=== PATIENT | female | born 1995 | race Caucasian/White ===

== ENCOUNTER 2016-09-19 23:15 | Outpatient (CLI) | payer MEDICAID ==
[~2016-09-19] VITALS: Ht 152.4 cm; Wt 82.7 kg
[2016-09-19 23:20] VITALS: BP 117/70; PULSE 64; TEMP 98.1
[2016-09-19] MEDS ORDERED: NATURAL IRON65 MG PO (23:28)
[2016-09-19] MEDS ORDERED: PRENATAL1 TA7 PO (23:28)
[2016-09-19] MEDS ORDERED: ZOLOFT 50MG50 MG PO (23:29)
[2016-09-20 01:00] VITALS: BP 122/72; PULSE 71
[2016-09-20 01:00] LABS: PH 7 (5-8); SQUAMOUS EPITHELIAL 0-2 /hpf; URINE APPEARANCE Clear; URINE BACTERIA None Seen /hpf; URINE BILIRUBIN Negative (NEGATIVE); URINE BLOOD Negative (NEGATIVE); URINE COLOR Colorless; URINE GLUCOSE Negative (NEGATIVE); URINE KETONE Negative (NEGATIVE); URINE RBC None Seen /hpf; URINE UROBILINOGEN Negative (NEGATIVE); URINE WBC 0-2 /hpf
[2016-09-20 01:30] VITALS: BP 121/68; PULSE 93
== END 2016-09-20 02:00 | disposition home or self-care (01) ==
LOC: LDRO 23:15
PROVIDERS: Student in an Organized Health Care Education/Training Program
DX: O26.893 Other specified pregnancy related conditions, third trimester (principal); R10.2 Pelvic and perineal pain; Z3A.33 33 weeks gestation of pregnancy
CPT/HCPCS: J3105; J7120

== ENCOUNTER 2016-09-29 18:32 | Outpatient (CLI) | payer MEDICAID ==
[~2016-09-29] VITALS: Ht 152.4 cm; Wt 85.0 kg
[~2016-09-29 18:32] MED LIST: NATURAL IRON65 MG PO; PRENATAL1 TA7 PO; ZOLOFT 50MG50 MG PO
[2016-09-29 18:47] VITALS: BP 117/67; PULSE 73; TEMP 98.3
== END 2016-09-29 20:00 | disposition home or self-care (01) ==
LOC: LDRO 18:32
DX: O26.893 Other specified pregnancy related conditions, third trimester (principal); R10.9 Unspecified abdominal pain; Z3A.34 34 weeks gestation of pregnancy

== ENCOUNTER 2016-10-01 22:48 | Outpatient (CLI) | payer MEDICAID ==
[~2016-10-01] VITALS: Ht 152.4 cm; Wt 85.0 kg
[2016-10-01 23:30] VITALS: BP 119/79; PULSE 82; TEMP 98.3
[2016-10-02] VITALS: BP 126/71; PULSE 104
== END 2016-10-02 01:00 | disposition home or self-care (01) ==
LOC: LDRO 22:48
DX: O62.9 Abnormality of forces of labor, unspecified (principal); Z3A.34 34 weeks gestation of pregnancy
CPT/HCPCS: J3105; J7120

== ENCOUNTER 2016-12-23 11:58 | Emergency (ER) | payer MEDICAID ==
[~2016-12-23] VITALS: Ht 154.9 cm; Wt 74.5 kg
[2016-12-23 11:59] VITALS: TEMP 98
[2016-12-23] MEDS ORDERED: KYLEENA1 EACH IY (12:02)
[2016-12-23 12:55] LABS: COLLECTION METHOD CATHETER
[2016-12-23 12:59] LABS: BASO % 0.2 % (0.0-2.0); EOS # 0.1 (0.0-0.7); EOS % 0.9 % (0-4.0); GRAN # 11.1 (1.4-6.5); HEMATOCRIT 41.2 % (37.0-47.0); HEMOGLOBIN 13.6 g/dl (12.5-16.0); LYMPH # 1.9 (1.2-3.4); LYMPH % 13.5 % (20.0-51.0); MEAN CELL VOLUME 91 fl (80.0-100.0); MEAN CORPUSCULAR HEMOGLOBIN 30 pg (27.0-31.0); MEAN CORPUSCULAR HGB CONC 33 g/dl (33.0-37.0); MEAN PLATELET VOLUME 9.7 fl (7.4-10.4); MONO # 0.8 (0.1-0.6); PLATELET COUNT 335 K/mm3 (130-400); RED BLOOD COUNT 4.54 M/mm3 (4.10-5.30)
[2016-12-23 13:04] LABS: MUCOUS Present /lpf; PH 7 (5-8); SQUAMOUS EPITHELIAL 20-50 /hpf; URINE APPEARANCE Cloudy; URINE BACTERIA Rare /hpf; URINE BILIRUBIN Negative (NEGATIVE); URINE BLOOD 1+ (NEGATIVE); URINE COLOR Yellow; URINE GLUCOSE Negative (NEGATIVE); URINE KETONE Negative (NEGATIVE); URINE LEUKOCYTE ESTERASE 2+ (NEGATIVE); URINE PROTEIN(semi-quant) 1+ (NEGATIVE)
[2016-12-23 13:05] LABS: URINE WBC 20-50 /hpf
[2016-12-23 13:19] LABS: ALBUMIN 4.9 gm/dL (3.5-5.0); BILIRUBIN,TOTAL 0.7 mg/dL (0.0-1.0); CALCIUM 9.7 mg/dL (8.4-10.2); CREATININE, serum 0.75 mg/dL (0.52-1.25); TOTAL PROTEIN 7.9 gm/dL (6.4-8.2)
[2016-12-23 15:17] LABS: COLLECTION METHOD CATHETER
[2016-12-23 15:23] LABS: MUCOUS Present /lpf; PH 7 (5-8); URINE APPEARANCE Clear; URINE BACTERIA None Seen /hpf; URINE BILIRUBIN Negative (NEGATIVE); URINE BLOOD Negative (NEGATIVE); URINE COLOR Straw; URINE GLUCOSE Negative (NEGATIVE); URINE KETONE Trace (NEGATIVE); URINE LEUKOCYTE ESTERASE Negative (NEGATIVE); URINE PROTEIN(semi-quant) Negative (NEGATIVE); URINE RBC 0-2 /hpf; URINE UROBILINOGEN Negative (NEGATIVE); URINE WBC 0-2 /hpf
[2016-12-23] MEDS ORDERED: NORCO 325 MG-51 TAB PO (15:47)
[2016-12-23] MEDS ORDERED: ZOFRAN 4MG T4 MG/TAB PO (15:47)
[2016-12-23 15:59] VITALS: BP 112/71; PULSE 59
== END 2016-12-23 16:01 | disposition home or self-care (01) ==
LOC: COL.ER 11:58
PROVIDERS: Physician Assistant
DX: N83.209 Unspecified ovarian cyst, unspecified side (principal); F32.9 Major depressive disorder, single episode, unspecified
CPT/HCPCS: J2405; J3010; J7030; Q9967

== ENCOUNTER 2017-03-15 18:34 | Emergency (ER) | payer MEDICAID ==
[~2017-03-15] VITALS: Ht 152.4 cm; Wt 76.4 kg
[~2017-03-15 18:34] MED LIST changes: +KYLEENA1 EACH IY; +NORCO 325 MG-51 TAB PO; +ZOFRAN 4MG T4 MG/TAB PO
[2017-03-15 18:41] VITALS: BP 133/69; TEMP 98.2
[2017-03-15] MEDS ORDERED: BIRTH CONTROL (18:45)
[2017-03-15 20:28] LABS: COLLECTION METHOD CATHETER
[2017-03-15 20:35] LABS: MUCOUS Present /lpf; PH 6 (5-8); URINE APPEARANCE Cloudy; URINE BACTERIA Rare /hpf; URINE BILIRUBIN Negative (NEGATIVE); URINE BLOOD Negative (NEGATIVE); URINE COLOR Yellow; URINE GLUCOSE Negative (NEGATIVE); URINE KETONE Negative (NEGATIVE); URINE LEUKOCYTE ESTERASE 2+ (NEGATIVE); URINE NITRATE Negative (NEGATIVE); URINE PROTEIN(semi-quant) Negative (NEGATIVE)
[2017-03-15] MEDS ORDERED: FLEXERIL 1010 MG/TAB PO (21:54)
[2017-03-15] MEDS ORDERED: NORCO 325 MG-51 TAB PO (21:54)
[2017-03-15] MEDS ORDERED: CEFTIN500 MG PO (21:54)
[2017-03-15 22:56] VITALS: PULSE 68
== END 2017-03-15 22:56 | disposition home or self-care (01) ==
LOC: COL.ER 18:34
PROVIDERS: Nurse Practitioner
DX: N39.0 Urinary tract infection, site not specified (principal); F32.9 Major depressive disorder, single episode, unspecified
CPT/HCPCS: J1885; J2360

== ENCOUNTER 2017-08-29 23:24 | Emergency (ER) | payer MEDICAID ==
[~2017-08-29] VITALS: Ht 152.4 cm; Wt 78.6 kg
[~2017-08-29 23:24] MED LIST changes: +BIRTH CONTROL; +CEFTIN500 MG PO; +FLEXERIL 1010 MG/TAB PO
[2017-08-29 23:27] VITALS: TEMP 98
[2017-08-29 23:50] LABS: BASO % 0.2 % (0.0-2.0); EOS % 0.3 % (0-4.0); GRAN # 7.9 (1.4-6.5); GRAN % 65.8 % (42.2-75.2); HEMATOCRIT 41.7 % (37.0-47.0); LYMPH % 24.9 % (20.0-51.0); MEAN CELL VOLUME 90 fl (80.0-100.0); MEAN CORPUSCULAR HEMOGLOBIN 30 pg (27.0-31.0); MEAN CORPUSCULAR HGB CONC 34 g/dl (33.0-37.0); MEAN PLATELET VOLUME 9.6 fl (7.4-10.4); MONO % 8.4 % (1.7-9.3); PLATELET COUNT 278 K/mm3 (130-400); RED BLOOD COUNT 4.63 M/mm3 (4.10-5.30); REDCELL DISTRIBUTION WIDTH-CV 13.1 % (11.5-14.5)
[2017-08-30 00:03] LABS: ALANINE AMINOTRANSFERASE 35 U/L (9-52); ALBUMIN 4.6 gm/dL (3.5-5.0); ALKALINE PHOSPHATASE 100 U/L (50-136); ANION GAP 12 mmol/L (7-16); AST,SGOT 21 U/L (15-37); BILIRUBIN,TOTAL 0.9 mg/dL (0.0-1.0); BLOOD UREA NITROGEN 9 mg/dL (7-17); C-REACTIVE PROTEIN 6.1 mg/dL (0.0-0.9); CALCIUM 9.6 mg/dL (8.4-10.2); CARBON DIOXIDE 27 mmol/L (22-30); CHLORIDE 98 mmol/L (98-107); CREATININE, serum 0.81 mg/dL (0.52-1.25); GLUCOSE 99 mg/dL (74-106); LIPASE 14 U/L (23-300); POTASSIUM 3.9 mmol/L (3.4-5.0); SODIUM 138 mmol/L (137-145); TOTAL PROTEIN 8.3 gm/dL (6.4-8.2)
[2017-08-30 00:13] LABS: TROPONIN-I < 0.012 ng/mL (0.000-0.034)
[2017-08-30 00:52] LABS: COLLECTION METHOD CLEAN CATCH
[2017-08-30 00:59] LABS: MUCOUS Present /lpf; PH 6 (5-8); URINE APPEARANCE Clear; URINE BACTERIA None Seen /hpf; URINE BILIRUBIN Negative (NEGATIVE); URINE BLOOD Negative (NEGATIVE); URINE COLOR Yellow; URINE GLUCOSE Negative (NEGATIVE); URINE KETONE Negative (NEGATIVE); URINE LEUKOCYTE ESTERASE Negative (NEGATIVE); URINE NITRATE Negative (NEGATIVE); URINE PROTEIN(semi-quant) Negative (NEGATIVE); URINE RBC 0-2 /hpf; URINE UROBILINOGEN Negative (NEGATIVE)
[2017-08-30] MEDS ORDERED: NORCO 325 MG-51 TAB PO (02:37)
[2017-08-30] MEDS ORDERED: LEVAQUIN 750MG750 M1 PO (02:37)
[2017-08-30 02:41] VITALS: BP 101/71; PULSE 65
== END 2017-08-30 02:46 | disposition home or self-care (01) ==
LOC: COL.ER 23:24
PROVIDERS: Emergency Medicine
DX: J90 Pleural effusion, not elsewhere classified (principal); Z90.89 Acquired absence of other organs
CPT/HCPCS: J1170; J1885; J7030; Q9967

== ENCOUNTER 2018-07-31 14:32 | Emergency (ER) | payer MEDICAID ==
[~2018-07-31] VITALS: Ht 152.4 cm; Wt 60.9 kg
[~2018-07-31 14:32] MED LIST changes: +LEVAQUIN 750MG750 M1 PO
[2018-07-31 14:38] VITALS: TEMP 98
[2018-07-31 14:51] LABS: COLLECTION METHOD CLEAN CATCH
[2018-07-31 15:13] LABS: MUCOUS Present /lpf; PH 6 (5-8); URINE APPEARANCE Clear; URINE BACTERIA None Seen /hpf; URINE BILIRUBIN Negative (NEGATIVE); URINE BLOOD Negative (NEGATIVE); URINE COLOR Yellow; URINE GLUCOSE Negative (NEGATIVE); URINE KETONE Negative (NEGATIVE); URINE LEUKOCYTE ESTERASE Negative (NEGATIVE); URINE NITRATE Negative (NEGATIVE); URINE PROTEIN(semi-quant) Negative (NEGATIVE); URINE RBC 0-2 /hpf; URINE UROBILINOGEN Negative (NEGATIVE)
[2018-07-31 18:07] LABS: BASO % 0.3 % (0.0-2.0); EOS # 0.1 (0.0-0.7); EOS % 1.6 % (0-4.0); GRAN # 4.2 (1.4-6.5); GRAN % 46.9 % (42.2-75.2); HEMOGLOBIN 11.2 g/dl (12.5-16.0); LYMPH % 44.1 % (20.0-51.0); MEAN CELL VOLUME 92 fl (80.0-100.0); MEAN CORPUSCULAR HEMOGLOBIN 31 pg (27.0-31.0); MEAN CORPUSCULAR HGB CONC 34 g/dl (33.0-37.0); MEAN PLATELET VOLUME 9.8 fl (7.4-10.4); MONO # 0.6 (0.1-0.6); MONO % 6.8 % (1.7-9.3); PLATELET COUNT 267 K/mm3 (130-400); RED BLOOD COUNT 3.62 M/mm3 (4.10-5.30); REDCELL DISTRIBUTION WIDTH-CV 12.9 % (11.5-14.5)
[2018-07-31 18:15] LABS: HEMATOCRIT 33.3 % (37.0-47.0)
[2018-07-31 18:19] LABS: ALANINE AMINOTRANSFERASE 27 U/L (9-52); ALBUMIN 3.9 gm/dL (3.5-5.0); ALKALINE PHOSPHATASE 50 U/L (50-136); ANION GAP 8 mmol/L (7-16); AST,SGOT 24 U/L (15-37); BILIRUBIN,TOTAL 0.2 mg/dL (0.0-1.0); BLOOD UREA NITROGEN 8 mg/dL (7-17); CALCIUM 9.1 mg/dL (8.4-10.2); CARBON DIOXIDE 26 mmol/L (22-30); CHLORIDE 104 mmol/L (98-107); CREATININE, serum 0.68 (0.52-1.25); GLUCOSE 90 mg/dL (74-106); LIPASE 49 U/L (23-300); POTASSIUM 3.8 mmol/L (3.4-5.0); SODIUM 139 mmol/L (137-145); TOTAL PROTEIN 6.6 gm/dL (6.4-8.2)
[2018-07-31 18:27] LABS: C-REACTIVE PROTEIN < 0.5 mg/dL (0.0-0.9)
[2018-07-31] MEDS ORDERED: PHENERGAN 25 TA25 MG PO (19:01)
[2018-07-31 19:05] LABS: HCG,QUANTITATIVE 25727 mIU/mL (0-5)
[2018-07-31 19:15] VITALS: BP 112/74; PULSE 74
== END 2018-07-31 19:15 | disposition home or self-care (01) ==
LOC: COL.ER 14:32
PROVIDERS: Emergency Medicine; Nurse Practitioner
DX: O21.9 Vomiting of pregnancy, unspecified (principal); F17.210 Nicotine dependence, cigarettes, uncomplicated; Z88.0 Allergy status to penicillin; Z88.5 Allergy status to narcotic agent; Z3A.01 Less than 8 weeks gestation of pregnancy
CPT/HCPCS: J7030

== ENCOUNTER 2018-09-05 03:34 | Emergency (ER) | payer MEDICAID ==
[~2018-09-05] VITALS: Ht 162.6 cm; Wt 59.1 kg
[~2018-09-05 03:34] MED LIST changes: +PHENERGAN 25 TA25 MG PO
[2018-09-05 03:47] VITALS: TEMP 98.2
[2018-09-05 04:21] LABS: BASO % 0.2 % (0.0-2.0); EOS # 0.1 (0.0-0.7); EOS % 1.3 % (0-4.0); GRAN # 6.2 (1.4-6.5); HEMOGLOBIN 11.6 g/dl (12.5-16.0); LYMPH # 3.1 (1.2-3.4); LYMPH % 31.1 % (20.0-51.0); MEAN CELL VOLUME 92 fl (80.0-100.0); MEAN CORPUSCULAR HEMOGLOBIN 30 pg (27.0-31.0); MEAN CORPUSCULAR HGB CONC 33 g/dl (33.0-37.0); MEAN PLATELET VOLUME 9.7 fl (7.4-10.4); MONO # 0.5 (0.1-0.6); MONO % 5.2 % (1.7-9.3); PLATELET COUNT 260 K/mm3 (130-400); RED BLOOD COUNT 3.83 M/mm3 (4.10-5.30); REDCELL DISTRIBUTION WIDTH-CV 13.1 % (11.5-14.5)
[2018-09-05 04:22] LABS: HEMATOCRIT 35.2 % (37.0-47.0)
[2018-09-05 04:32] LABS: ALBUMIN 3.7 gm/dL (3.5-5.0); BILIRUBIN,TOTAL 0.3 mg/dL (0.0-1.0); CREATININE, serum 0.47 (0.52-1.25); TOTAL PROTEIN 6.6 gm/dL (6.4-8.2)
[2018-09-05 06:00] VITALS: BP 117/70; PULSE 67
== END 2018-09-05 06:00 | disposition home or self-care (01) ==
LOC: COL.ER 03:34
PROVIDERS: Emergency Medicine
DX: O26.891 Other specified pregnancy related conditions, first trimester (principal); O99.331 Smoking (tobacco) complicating pregnancy, first trimester; R53.81 Other malaise; R53.83 Other fatigue; F17.210 Nicotine dependence, cigarettes, uncomplicated; Z3A.11 11 weeks gestation of pregnancy

== ENCOUNTER 2019-01-15 04:11 | Emergency (ER) | payer MEDICAID ==
[~2019-01-15] VITALS: Ht 157.5 cm; Wt 72.7 kg
[2019-01-15 04:13] VITALS: BP 114/68; TEMP 98.8
[2019-01-15 04:51] LABS: BASO % 0.3 % (0.0-2.0); EOS # 0.2 (0.0-0.7); EOS % 1.6 % (0-4.0); GRAN # 5.9 (1.4-6.5); GRAN % 61.6 % (42.2-75.2); HEMOGLOBIN 11.6 g/dl (12.5-16.0); LYMPH # 2.8 (1.2-3.4); LYMPH % 29.3 % (20.0-51.0); MEAN CELL VOLUME 93 fl (80.0-100.0); MEAN CORPUSCULAR HEMOGLOBIN 31 pg (27.0-31.0); MEAN CORPUSCULAR HGB CONC 33 g/dl (33.0-37.0); MEAN PLATELET VOLUME 10.6 fl (7.4-10.4); MONO # 0.6 (0.1-0.6); MONO % 6.7 % (1.7-9.3); PLATELET COUNT 252 K/mm3 (130-400); RED BLOOD COUNT 3.78 M/mm3 (4.10-5.30)
[2019-01-15 05:04] LABS: ALBUMIN 3.9 gm/dL (3.5-5.0); BILIRUBIN,TOTAL 0.2 mg/dL (0.0-1.0); CALCIUM 8.8 mg/dL (8.4-10.2); CREATININE, serum 0.6 (0.52-1.25); POTASSIUM 3.7 mmol/L (3.4-5.0); TOTAL PROTEIN 7.3 gm/dL (6.4-8.2)
[2019-01-15 05:05] LABS: HEMATOCRIT 35.3 % (37.0-47.0)
[2019-01-15 06:56] LABS: COLLECTION METHOD CLEAN CATCH
[2019-01-15 07:06] LABS: MUCOUS Present /lpf; PH 6 (5-8); SQUAMOUS EPITHELIAL 0-2 /hpf; URINE APPEARANCE Clear; URINE BACTERIA Rare /hpf; URINE BILIRUBIN Negative (NEGATIVE); URINE BLOOD Negative (NEGATIVE); URINE COLOR Yellow; URINE GLUCOSE Negative (NEGATIVE); URINE KETONE Negative (NEGATIVE); URINE LEUKOCYTE ESTERASE Negative (NEGATIVE); URINE NITRATE Negative (NEGATIVE); URINE PROTEIN(semi-quant) Negative (NEGATIVE); URINE RBC 0-2 /hpf; URINE UROBILINOGEN Negative (NEGATIVE)
[2019-01-15 07:30] VITALS: PULSE 75
== END 2019-01-15 07:30 | disposition home or self-care (01) ==
LOC: COL.ER 04:11
PROVIDERS: Emergency Medicine
DX: O98.513 Other viral diseases complicating pregnancy, third trimester (principal); A08.4 Viral intestinal infection, unspecified; Z3A.30 30 weeks gestation of pregnancy
CPT/HCPCS: J2765; J7030

== ENCOUNTER → 2019-01-15 | Outpatient (CLI) | payer MEDICAID ==
[~2019-01-15] VITALS: Ht 154.9 cm; Wt 72.6 kg
[~2019-01-15] MED LIST changes: +PRENATAL VITAMI1 TA3 PO
--- NOTE | 2019-01-15 03:30 | NUR ---
0330- Patient ambulatory to R-5 for NST. Patient has complaints of watery diarrhea, minimal dark urine output, and N/V x2 days. Patient states baby is moving normally. Patient denies LOF, bleeding, spotting, and contractions. EFM and TOCO on and tracing. Assessment completed. 0350- FHR strip reviewed with circulation supervisor, RAFAELA Singh. circulation supervisor agrees patient needs to follow up in ED for GI issues. ED circulation supervisor notified. 0355- EFM and TOCO removed. Patient dressed. Patient ambulated to ED with this RN for further evaluation.
[2019-01-15 03:55] VITALS: BP 112/75; PULSE 69; TEMP 98.1
== END ==
LOC: LDRO 03:16 → COL.ER 03:16 → EDSTATUS 04:06
DX: O99.89 Other specified diseases and conditions complicating pregnancy, childbirth and the puerperium (principal); R19.7 Diarrhea, unspecified; R11.2 Nausea with vomiting, unspecified; Z3A.29 29 weeks gestation of pregnancy

== ENCOUNTER 2019-02-16 02:46 | Outpatient (CLI) | payer MEDICAID ==
[~2019-02-16] VITALS: Ht 165.1 cm; Wt 77.3 kg
--- NOTE | 2019-02-16 02:45 | NUR ---
Pt arrived on unit ambulatory escorted by boyfriend and with complaints of back pain and occasional contractions. Pt denies any leaking of fluid or vaginal bleeding but does report increased discharge. Pt also reports normal movement. EFM and toco monitors started. Vital signs WNL. Plan of care for labor assessment reviewed.
[2019-02-16 03:14] VITALS: BP 116/76; PULSE 62; TEMP 97.9
[2019-02-16] MEDS ORDERED: ZOFRAN 4MG T4 MG/TAB PO (03:21)
--- NOTE | 2019-02-16 03:55 | NUR ---
Spoke with Dr. Ferraro for an update on pt's status with ctx pattern, SVE and FHR tracing reviewed. Orders for tylenol x1 now received. See EMAR for details. Orders for discharge home received.
--- NOTE | 2019-02-16 04:02 | NUR ---
Discharge information reviewed with pt and boyfriend at the bedside. Both verbalized an understanding, agreed with the plan and states no questions or concerns at this time.
== END 2019-02-16 04:14 | disposition home or self-care (01) ==
LOC: LDRO 02:46
DX: Z34.93 Encounter for supervision of normal pregnancy, unspecified, third trimester (principal); Z3A.34 34 weeks gestation of pregnancy

== ENCOUNTER 2019-03-13 13:20 | Inpatient (IN) | payer MEDICAID ==
[~2019-03-13] VITALS: Ht 167.6 cm; Wt 78.6 kg
[2019-03-13] VITALS (26 sets, daily range): BP systolic 105–155; BP diastolic 59–96; PULSE 65–142; TEMP 97.9–98.3
--- NOTE | 2019-03-13 13:15 | NUR ---
Presents to labor and delivery. States having contractions since 0200 a.m. Assessment done, questions offered and answered.
--- NOTE | 2019-03-13 14:00 | NUR ---
Rests in bed, breathes through contractions. 1420 To bathroom, urine specimen obtained and sent to lab. Ambulates back to bed.
[2019-03-13 14:54] LABS: TRICYCLIC ANTIDEPRESS URINE NEGATIVE
--- NOTE | 2019-03-13 15:00 | NUR ---
1500 Rests in bed, alert. 1515 Vag exam done, dilated to three. Ambulates in the [address].
--- NOTE | 2019-03-13 16:30 | NUR ---
1635 Dr. Becrera here, arom done. Large amount of clear fluid noted. Pad changed.
[2019-03-13 16:55] LABS: BASO % 0.2 % (0.0-2.0); EOS # 0.1 (0.0-0.7); EOS % 0.9 % (0-4.0); GRAN # 7.2 (1.4-6.5); LYMPH # 3.7 (1.2-3.4); LYMPH % 30.7 % (20.0-51.0); MEAN CELL VOLUME 93 fl (80.0-100.0); MEAN CORPUSCULAR HGB CONC 33 g/dl (33.0-37.0); MEAN PLATELET VOLUME 10.9 fl (7.4-10.4); MONO # 0.8 (0.1-0.6); PLATELET COUNT 219 K/mm3 (130-400); RED BLOOD COUNT 3.24 M/mm3 (4.10-5.30); REDCELL DISTRIBUTION WIDTH-CV 13.6 % (11.5-14.5)
[2019-03-13 16:58] LABS: HEMOGLOBIN 9.8 g/dl (12.5-16.0); MEAN CORPUSCULAR HEMOGLOBIN 30 pg (27.0-31.0)
--- NOTE | 2019-03-13 18:51 | NUR ---
184- PT REQUESTS EPIDURAL PLACEMENT. 1850- Con CARPIO, TERRAZZO WORKER APPRENTICE NOTIFIED OF PT REQUEST, WILL COME FOR EPIDURAL PLACEMENT.
--- NOTE | 2019-03-13 19:30 | NUR ---
190- PT SITTING UP AT BEDSIDE FOR EPIDURAL PLACEMENT. Con CARPIO CRNA IN ROOM FOR EPIDURAL PLACEMENT. 1906- DIFFICULTY TRACING FHT'S DUE TO MATERNAL POSITION FOR EPIDURAL PLACEMENT, ATTEMPT TO ADJUST US, FM AUDIBLE. 1915- TRACING MATERNAL HR. FM AUDIBLE. 1920- TEST DOSE GIVEN BY Con CARPIO CRNA. 1924- EPIDURAL IN PLACE, PT TOLERATED PLACEMENT WELL. REPOSITIONED INTO SEMIFOWLERS.
[2019-03-13] MEDS ORDERED: MOTRIN 800800 MG/TAB PO (23:14)
[2019-03-14] VITALS (11 sets, daily range): BP systolic 95–142; BP diastolic 59–81; PULSE 16–79; TEMP 97.6–98.6
--- NOTE | 2019-03-14 | NUR ---
2345- FHT'S NOT TRACING. THIS NURSE AND DR MALLOY INTO ROOM TO EVALUATE. PT IS CRYING UNCONTROLLABLY AND STATES SHE IS HAVING PAIN WITH HER CONTRACTIONS. DR. MALLOY PERFORMS SVE, PT IS 10/100/+3. 2349- NEGRON DC'D, 350MLS CLEAR YELLOW URINE. 2350- SPONTANEOUS VAGINAL DELIVERY OF VIABLE BABY BOY. BABY TO MOTHER'S ABDOMEN. CORD CLAMPED BY DR. MALLOY, CUT BY FOB. BABY CARES ASSUMED BY Amanda ESCOTO RN. 2352- SPONTANEOUS DELIVERY OF INTACT PLACENTA OVER INTACT PERINEUM. PITOCIN STARTED PER PROTOCOL. 0000- RECOVERY STARTED.
--- NOTE | 2019-03-14 | NUR ---
MULTIPLE TIMES DURING LABOR PT NOTED TO BE TEARFUL. FOB PRESENT IN ROOM AND WHEN THIS NURSE WOULD ASK WHAT WAS WRONG PT WOULD STATE, "NOTHING, I THINK I'M JUST EMOTIONAL." ASKED IF PT NEEDED ANYTHING BUT SHE WOULD DENY. FOB WAS IN AND OUT OF ROOM MULTIPLE TIMES THROUGHOUT LABOR. AT APPROXIMATELY 2220 FOB WAS OUT OF THE ROOM. UPON THIS NURSE ENTERING PT WAS VERY TEARFUL, AGAIN ASKED IF SHE WAS IN PAIN. PT STATES THAT THE FOB IS "BEING A FUCKING DARCY" AND THAT HE LEFT TO GO HOME TO [place] TO TAKE CARE OF THEIR DOGS. SVE WAS RECENTLY PERFORMED AND PT NOTIFIED THAT SHE IS STARTING TO PROGRESS FASTER AND SHE MIGHT WANT TO NOTIFY THE FOB TO COME BACK SO HE IS PRESENT FOR THE DELIVERY. OFFERED TO CONTACT FOB FOR HER, PT AGREES. FOB NOTIFIED BUT STATES THAT HE HAS TO TAKE CARE OF THE DOGS BUT SHOULD BE BACK SOON. SVE PERFORMED AGAIN AT APPROXIMATELY 2240 AND PT WAS 8CM. PT TEXTED FOB AN UPDATE. WHILE THIS NURSE IN THE ROOM FOB CALLED THE PT, UNABLE TO TELL WHAT HE WAS SAYING BUT HE SOUNDED ANGRY. WHEN PT WAS OFF THE PHONE I ASKED IF THAT WAS FOB SHE STATED YES. STATES FOB WAS UPSET THAT SHE TEXTED HIM AN UPDATE OF HER EXAM AND STATED, "WHAT? YOU DON'T FUCKING WANT ME THERE NOW?" PT ATTEMPTED TO EXPLAIN THAT SHE WAS JUST GIVING HIM AN UPDATE SO THAT HE DIDN'T HOWELL TRYING TO GET BACK BUT HE HUNG UP. WHEN FOB GOT BACK TO THE ROOM AT APPROXIMATELY 2300 HE DIDN'T SPEAK TO THE PT. DR. MALLOY AND THIS NURSE IN THE ROOM FOR SVE, PT 9CM AT THAT TIME. THIS NURSE REMAINED IN ROOM TO REPOSITION PT, PRIOR TO LEAVIING I ASKED IF I COULD GET THE PT ANYTHING OR IF SHE WOULD LIKE THE FOB TO COME SIT WITH HER AND SHE SAID YES. I ASKED THE FOB TO COME SIT AT THE BEDSIDE BUT HE STATES, "I'M NOT REALLY THE VERENA DOVEY TYPE." I STATED THAT HE DIDN'T NEED TO BE VERENA DOVEY THAT SHE WOULD JUST LIKE IF HE SAT WITH HER AND HELD HER HAND BUT HE AGAIN REFUSED AND STATED, " I'M FINE RIGHT HERE, YOU ARE REALLY MAKING THIS DIFFICULT." AGAIN ASKED THE PT IF SHE NEEDED ANYTHING BUT SHE DECLINED. AFTER THIS NURSE WAS OUT OF THE ROOM I HEARD A LOUD NOISE AND SOMEONE YELL. UPON REENTERING THE ROOM THE FOB WAS SITTING ON THE STOOL AND HIS PHONE WAS ON THE FLOOR IN FRONT OF HIM. I ASKED WHAT HAD HAPPENED BUT THE PT SAID, "NOTHING, HE JUST DROPPED HIS PHONE." THIS NURSE LEAVES ROOM, BUT SHORTLY AFTER CAN HEAR ARGUING COMING FROM THE ROOM. SECURITY NOTIFIED, UP TO UNIT A PRECAUTIONARY. THIS NURSE BACK IN ROOM SHORTLY AFTER TO ASSESS PT, ASKED IF SHE WOULD LIKE THE FOB TO LEAVE BUT SHE DECLINED. SECURITY REMAINS ON UNIT TILL DELIVERY. FOB AND PT APPROPRIATE AFTER DELIVERY.
--- NOTE | 2019-03-14 02:00 | NUR ---
PT UP TO BATHROOM, ABLE TO VOID 500MLS. PERICARE PERFORMED, PERIPAD AND MESH UNDERWEAR ON. PT AMBULATED TO , TOLERATED WELL. ORIENTED TO ROOM, DENIES QUESTIONS OR CONCERNS.
--- NOTE | 2019-03-14 09:00 | NUR ---
The patient tested positive for cannabinoids at admission. The patient's baby boy tested positive for cannabinoids and methamphetamines. Cord blood pending. CPS report # [id number].
--- NOTE | 2019-03-14 09:36 | NUR ---
Initial Visit; Well Treatment Offsider offered congratulations and God's blessings for the of their son and thanked them for choosing [facility].
--- NOTE | 2019-03-14 10:26 | NUR ---
RUBY espinoza responded to a psychotherapist social worker consult due to identified risk of presence of illegal drug in infant. RUBY met with the patient and the FOB. The baby had a gestation of 38 weeks. The patient reports she has all the baby supplies she needs. The patient will take 6 weeks off of work. RUBY espinoza discussed drug usage. The patient declined treatment. The patient has two other children born in 2016, 2014 and 2010. The patient reports the two year old is currently in [place] visiting the child's father until April . The other two live with the patient. 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 RUBY espinoza discussed treatment options with the patient for depression. The patient's reports she receives Zoloft from her PCP and reports she will go to [place] if she feels she needs to talk to someone. RUBY espinoza collaborated the above information with the patient's nurse.
[2019-03-15 07:30] VITALS: BP 126/73; PULSE 64; TEMP 98.6
[2019-03-15] MEDS ORDERED: ZOLOFT 25MG25 MG PO (09:15)
== END 2019-03-15 10:05 | disposition home or self-care (01) | DRG 806 ==
LOC: LDRO 13:20 → LDR 16:20 → OB 16:20
PROVIDERS: ADMIT Obstetrics & Gynecology
PROC: 10E0XZZ Delivery of Products of Conception, External Approach (ICD-10-PCS; principal; 2019-03-14)
PROC: 3E033VJ Introduction of Other Hormone into Peripheral Vein, Percutaneous Approach (ICD-10-PCS; 2019-03-14)
DX: O60.23X0 Term delivery with preterm labor, third trimester, not applicable or unspecified (principal); O99.323 Drug use complicating pregnancy, third trimester; Z37.0 Single live birth; O62.0 Primary inadequate contractions; O99.343 Other mental disorders complicating pregnancy, third trimester; F32.9 Major depressive disorder, single episode, unspecified; F12.90 Cannabis use, unspecified, uncomplicated; Z3A.38 38 weeks gestation of pregnancy
CPT/HCPCS: J2590; J7120